=== PATIENT | male | born 1970 | race Caucasian/White ===

== ENCOUNTER 2017-03-08 14:16 | Emergency (ER) | payer BC ==
[~2017-03-08] VITALS: Ht 180.3 cm; Wt 105.0 kg
[~2017-03-08 14:16] MED LIST: DICL-86 PO; Z.0.NO CURRENT MEDS
[2017-03-08 14:20] VITALS: BP 135/74; PULSE 75; RESP 16; TEMP 97.7; O2SAT 99
--- NOTE | 2017-03-08 15:08 | PD ---
HPI Chief Complaint: Injury Time Seen by Provider: 14:37 Travel History International Travel<30 days: No Contact w/Intl Traveler<30days: No Traveled to known affect area: No History of Present Illness HPI 46-year-old male presents to the emergency room for evaluation of left foot pain and swelling after injury yesterday. Patient jumped on a bounce house type structure and when he looked down his left second toe was bent all the way back. He grabbed it and put back in place. Since then he has had increasing bruising, swelling, and continued pain to the area. Pain is localized to the left second toe and radiates into the plantar foot and up the dorsal foot. Worse ambulation and range of motion. Denies paresthesias. Patient applied ice this morning but has not taken anything for symptoms. No chronic medical conditions or daily medications. [facility] Social History Alcohol Use: No Tobacco Use: No Substance Use: No Allergies-Medications (Allergen,Severity, Reaction): Coded Allergies: No Known Allergies (Verified , 03/08/17) Reported Meds & Prescriptions Reported Meds & Active Scripts Active No Active Prescriptions or Reported Medications Review of Systems Except as stated in HPI: all other systems reviewed are Neg Physical Exam Narrative GENERAL: Well-nourished, well-developed male in no acute distress. Afebrile. Ambulatory. SKIN: Focused skin assessment warm/dry. Extreme ecchymosis of the left second toe. HEAD: Normocephalic. EYES: No scleral icterus. No injection or drainage. NECK: Supple, trachea midline. No JVD or lymphadenopathy. CARDIOVASCULAR: Regular rate and rhythm without murmurs, gallops, or rubs. RESPIRATORY: Breath sounds equal bilaterally. No accessory muscle use. EXTREMITY: Full range of motion of the left foot. Moderate edema especially over the dorsal area. Tenderness to palpation of the left second toe and left dorsal, distal foot. 2+ dorsalis pedis pulses. Less than 2 second capillary refill distally. Data Data Last Documented VS Vital Signs Date Time Temp Pulse Resp B/P Pulse Ox O2 Delivery O2 Flow Rate FiO2 03/08/17 14:20 97.7 75 16 135/74 99 Orders Foot, Complete ([id number]) (03/08/17 ) [facility] Medical Decision Making Medical Screen Exam Complete: Yes Emergency Medical Condition: Yes Medical Record Reviewed: Yes Differential Diagnosis Sprain, strain, fracture, dislocation Narrative Course 46-year-old male presents to the emergency room for evaluation of left foot pain and swelling for the past day. Patient then his left second digit following back and was able to replace it manually. Since then he has had increasing swelling and bruising to the area. Patient has been ambulatory since onset symptoms. Denies paresthesias. Physical exam reveals moderate edema and ecchymosis to left second digit and surrounding area. Less than 2 second capillary distally and 2+ dorsalis pedis pulse. X-ray shows nondisplaced fracture of the left second proximal phalanx. Patient's toe manuel taped and he was given postop shoe. Discharge with orthopedic instructions and told to follow up with her primary care physician. He understands and agrees to plan. Diagnosis Primary Impression: Toe fracture, left Qualified Code: S92.515A - Closed nondisplaced fracture of proximal phalanx of lesser toe of left foot, initial encounter Referrals: Primary Care Physician Patient Instructions: General Instructions Additional Instructions: Rest and drink plenty of fluids. Keep manuel taped for up to 6 weeks. Take ibuprofen with food as directed, as needed for pain. Apply ice to the affected area for 20 minutes at a time, as needed for pain and swelling. Follow-up with a primary care physician. Return to the emergency room for worsening symptoms. Scripts No Active Prescriptions or Reported Meds Disposition: 01 DISCHARGE HOME Condition: Stable Alicia Waters Mar 08, 2017 15:08
--- NOTE | 2017-03-08 15:10 | RADRPT ---
EXAM DATE/TIME: 03/08/2017 14:49 [place] COMPARISON: No previous studies available for comparison. INDICATIONS : Left foot pain after falling. MEDICAL HISTORY : None. SURGICAL HISTORY : None. ENCOUNTER: Initial ACUITY: 2 days PAIN SCORE: 3/10 LOCATION: Left posterior 1st,2nd,3rd digits FINDINGS: Three view examination of the left foot demonstrates no soft tissue swelling, dislocation, or fractur e except for spiral nondisplaced fracture of the second proximal phalangeal bone. The tarsal bones appear intact. The interphalangeal and metatarsophalangeal joints are intact. The calcaneus is inta ct. Bony mineralization is normal. CONCLUSION: Unremarkable examination of the left foot except for spiral nondisplaced fracture of the second proxi mal phalangeal bone. Homero Young MD on March 08, 2017 at 15:07 Board Certified Radiologist. This report was verified electronically.
== END 2017-03-08 15:30 | disposition home or self-care (01) ==
LOC: PHEFT 14:16
DX: S92.515A Nondisplaced fracture of proximal phalanx of left lesser toe(s), initial encounter for closed fracture (principal); X58.XXXA Exposure to other specified factors, initial encounter; Y93.39 Activity, other involving climbing, rappelling and jumping off
CPT/HCPCS: 73630; 99283; L3260